=== PATIENT | male | born 1960 | race Hispanic/Latino ===

== ENCOUNTER 2017-07-31 11:49 | Outpatient (CLI) | payer OTHER ==
--- NOTE | 2017-07-31 14:08 | CT ---
CT BRAIN WITHOUT CONRAST: Date: 07/31/17 HISTORY: Injury. Fall. COMPARISON: None. FINDINGS: No acute territorial infarct or hemorrhage. No midline shift or mass effect. Mild microvascular ische nora changes. The calvarium is intact. Paranasal sinuses and mastoids are clear. IMPRESSION: No acute intracranial abnormality. POS: [facility]
== END 2017-07-31 11:50 | disposition home or self-care (01) ==
LOC: CT 11:49
PROVIDERS: ATTEND Family Medicine
DX: S00.93XA Contusion of unspecified part of head, initial encounter (principal); G44.319 Acute post-traumatic headache, not intractable; S46.911A Strain of unspecified muscle, fascia and tendon at shoulder and upper arm level, right arm, initial encounter; S63.92XA Sprain of unspecified part of left wrist and hand, initial encounter; S70.11XA Contusion of right thigh, initial encounter; S80.11XA Contusion of right lower leg, initial encounter
CPT/HCPCS: 70450

== ENCOUNTER 2017-10-02 11:44 | Outpatient (CLI) | payer OTHER ==
[2017-10-02 12:08] VITALS: BMI 32.3
[2017-10-02 12:51] LABS: Hemoglobin 16.9 g/dL (14.0-18.0); Mean Corpuscular HGB CONC 34.8 g/dL (32.0-36.0); Mean Corpuscular Hemoglobin 30.1 pg (27.0-31.0); Mean Corpuscular Volume 86.4 fl (80.0-94.0); Mean Platelet Volume 8.3 fL (7.4-10.4); Platelet Count 325 thou/uL (130-400); RBC Distribution Width 12.3 % (11.5-14.5); Red Blood Cell (RBC) Count 5.62 mill/uL (4.70-6.10)
[2017-10-02 13:09] LABS: Anion Gap 10 mmol/L (10-20); BUN (Urea Nitrogen) 12 mg/dL (8.4-25.7); Calc. Creatinine Clearance 118 mL/min (70-130); Calcium 9.7 mg/dL (7.8-10.44); Carbon Dioxide 27 mmol/L (22-29); Chloride 105 mmol/L (98-107); Estimated GFR-MDRD 75; Glucose 101 mg/dL (70-105); Potassium 4.3 mmol/L (3.5-5.1); Sodium 138 mmol/L (136-145)
== END 2017-10-02 11:45 | disposition home or self-care (01) ==
LOC: LABBT 11:44
PROVIDERS: ATTEND Orthopaedic Surgery
DX: Z01.818 Encounter for other preprocedural examination (principal); M75.101 Unspecified rotator cuff tear or rupture of right shoulder, not specified as traumatic; S43.431A Superior glenoid labrum lesion of right shoulder, initial encounter
CPT/HCPCS: 80048; 85027

== ENCOUNTER 2017-10-06 07:29 | Day surgery (SDC) | payer OTHER ==
[2017-10-06] MEDS ORDERED: Fentanyl 100 MCG/2 ML VIAL ONE ×3 (07:51→12:38)
[2017-10-06] MEDS ORDERED: Midazolam HCl 2 mg/2 ml Vial ONE (07:51)
[2017-10-06] MEDS ORDERED: Bupivacaine/Epinephrine 0.25% 30 ML VIAL ONE (07:52)
[2017-10-06] MEDS ORDERED: Ondansetron HCl/PF 4 MG/2 ML Vial IVP PRN (08:37)
[2017-10-06] MEDS ORDERED: Ropivacaine HCl/PF 1,100 MG in Sodium Chloride 0.9% 440 ML NERVE BLCK SCH (08:37)
[2017-10-06] MEDS ORDERED: Zolpidem Tartrate 5 MG TAB PO PRN (08:37)
[2017-10-06] MEDS ORDERED: Promethazine HCl 25 MG/ML VIAL IM PRN (08:37)
[2017-10-06] MEDS ORDERED: HYDROcodone/Acetaminophen 10/325 mg Tablet PO PRN ×2 (08:37)
[2017-10-06] MEDS ORDERED: traMADol HCl 50 MG TAB PO PRN ×2 (08:37)
[2017-10-06] MEDS ORDERED: Fentanyl 100 MCG/2 ML VIAL IV PRN (08:38)
[2017-10-06] MEDS ORDERED: CEFAZOLIN/Water 2 GM/20 ML SYRINGE ONE (08:39)
[2017-10-06] MEDS ORDERED: Ondansetron HCl/PF 4 MG/2 ML Vial ONE ×2 (09:18→14:22)
[2017-10-06] MEDS ORDERED: Bupivacaine 0.5% 10 ML VIAL ONE (12:40)
[2017-10-06] MEDS ORDERED: Ropivacaine 0.2% HCl/PF (40 MG/20 ML VIAL) ONE (13:48)
[2017-10-06] MEDS ORDERED: Ropivacaine 0.5% HCl/PF (150 MG/30 ML VIAL) ONE (13:48)
[2017-10-06] MEDS ORDERED: Dexamethasone 20 MG/5 ML VIAL ONE (14:22)
[2017-10-06] MEDS ORDERED: Lidocaine 1% PF 5 ML VIAL ONE (14:22)
[2017-10-06] MEDS ORDERED: Glycopyrrolate 0.2 MG/ML 5 ML SYRINGE ONE (14:22)
[2017-10-06] MEDS ORDERED: PROPOFOL 200 MG/20 ML VIAL ONE (14:22)
--- NOTE | 2017-10-06 14:39 | OP ---
DATE OF OPERATION: 10/06/2017 PREOPERATIVE DIAGNOSES: Right shoulder rotator cuff tear, biceps tendinitis and superior labral tear . POSTOPERATIVE DIAGNOSES: Right shoulder rotator cuff tear, biceps tendinitis and superior labral tea r. PROCEDURES PERFORMED: 1. Arthroscopy of the right shoulder with repair of the superior labrum. 2. Open right biceps tenodesis. 3. Open right rotator cuff repair with arthroscopic subacromial decompression. SURGEON: Jacob Norwood M.D. ANESTHESIA: General. TECHNIQUE: The patient had a supraclavicular block performed prior to surgery. He was given preoper ative IV antibiotics, taken to the operating room and placed in supine position. Satisfactory genera l anesthesia was performed. The patient was then placed in the left lateral decubitus position. All bony prominences were well padded. The right upper extremity was placed in 15 pounds of traction an d the right shoulder and upper extremity was sterilely prepped and draped in usual fashion. The [facility] lder was scoped with the usual posterior and anterior portals with a lateral portal. The patient was noted to have no significant arthritic changes in the shoulder joint. There was a tear in the super ior aspect of the labrum at the anchor attachment of the biceps tendon to the glenoid making a 2.5 cm incision over the bicipital groove. The biceps tendon was located, sutures were placed and the светлана ps tendon was detached using a shaver and surface arthrowand and then using the Arthrex 8 mm biceps t enodesis anchor, hole was made and the biceps tendon was tenodesed in the humeral head. This wound w as closed and then the superior aspect of the labrum was repaired using a 2.9 anchor and using #2 Fib erWire. This provided a good stability to the labral tear. The anterior and posterior aspects of th e labrum were intact. The subacromial space was then entered and there was significant amount of bur sitis. The bursal tissue was removed with the shaver and a subacromial decompression was performed u sing the arthrowand and the high speed bur. The patient had a significant bursitis. A larger incisi on was made in the lateral aspect of the shoulder and the bursal tissue was removed and the rotator c uff was repaired using two row anchor system by Arthrex using the 4.75 anchors and the FiberTape this provided excellent repair of the rotator cuff, the wounds were irrigated during the procedure. The fascia over the deltoid muscle was closed using 0 Vicryl in interrupted simple sutures and the skin w as closed with skin edwige. Sterile dressing was applied. The patient was placed in a shoulder imm obilizer. He was awakened, extubated, and transferred to recovery room in stable condition. ESTIMATED BLOOD LOSS: Minimal. COMPLICATIONS: None. DISCHARGE MEDICATIONS: [place] 10 one every 6 hours as needed for pain, # 60.
== END 2017-10-06 16:15 | disposition home or self-care (01) ==
LOC: SDC 07:29
PROVIDERS: ATTEND Orthopaedic Surgery
PROC: 0LQ10ZZ Repair Right Shoulder Tendon, Open Approach (ICD-10-PCS; principal; 2017-10-06)
PROC: 0LS14ZZ Reposition Right Shoulder Tendon, Percutaneous Endoscopic Approach (ICD-10-PCS; principal; 2017-10-06)
PROC: 0MM14ZZ Reattachment of Right Shoulder Bursa and Ligament, Percutaneous Endoscopic Approach (ICD-10-PCS; principal; 2017-10-06)
PROC: 0LU Tendons, Supplement (ICD-10-PCS; principal; 2017-10-06)
DX: S46.011A Strain of muscle(s) and tendon(s) of the rotator cuff of right shoulder, initial encounter (principal); S43.431A Superior glenoid labrum lesion of right shoulder, initial encounter; M75.21 Bicipital tendinitis, right shoulder; M75.51 Bursitis of right shoulder; K21.9 Gastro-esophageal reflux disease without esophagitis; Z79.899 Other long term (current) drug therapy; Z91.041 Radiographic dye allergy status; Z88.6 Allergy status to analgesic agent; W17.89XA Other fall from one level to another, initial encounter
CPT/HCPCS: 96374; C1713; J1100; J2001; J2250; J2405; J2704; J2795; J3010; J3490

== ENCOUNTER 2018-04-13 06:22 | Day surgery (SDC) | payer OTHER ==
[2018-04-12 12:10] VITALS: BMI 30.1
[2018-04-13] MEDS ORDERED: Fentanyl 100 MCG/2 ML VIAL ONE (09:34)
[2018-04-13] MEDS ORDERED: Midazolam HCl 2 mg/2 ml Vial ONE (09:34)
[2018-04-13] MEDS ORDERED: Acetaminophen 500 MG TAB ONE (12:47)
--- NOTE | 2018-04-13 14:16 | OP ---
DATE OF OPERATION: 04/13/2018 PREOPERATIVE DIAGNOSIS: Adhesive capsulitis of the right shoulder. POSTOPERATIVE DIAGNOSIS: Adhesive capsulitis of the right shoulder. PROCEDURE: Manipulation under anesthesia of the right shoulder. SURGEON: Jacob Norwood M.D. ANESTHESIA: Supraclavicular block and general anesthesia. TECHNIQUE: The patient had a supraclavicular block performed prior to surgery. He was taken to the operating room, placed in supine position. Satisfactory general anesthesia was performed. The right shoulder was possibly elevated and he only had 90 degrees of abduction and flexion. I was able to m anipulate the right upper extremity and bring the shoulder up to 180 degrees. During this process, t he scar tissue was palpably and audibly felt and heard. The shoulder was moved in external and inter nal rotation to break up some additional scar tissue. The patient was then awakened and transferred to day stay in good condition. There were no complications. No blood loss. The patient may use an arm sling and use ice for the next several days. He will follow up in my office in 1 week, at which time we will send him to physical therapy. DISCHARGE MEDICATIONS: [place] 10 one every 6 hours as needed for pain, #50.
[2018-04-13] MEDS ORDERED: Bupivacaine HCl 0.5%/Epinephrine 1:200,000/PF 30 ml Vial ONE (14:17)
== END 2018-04-13 13:30 | disposition home or self-care (01) ==
LOC: SDC 06:22
PROVIDERS: ATTEND Orthopaedic Surgery
PROC: 0RQ Upper Joints, Repair (ICD-10-PCS; principal; 2018-04-13)
DX: M75.01 Adhesive capsulitis of right shoulder (principal); Z91.041 Radiographic dye allergy status; Z88.8 Allergy status to other drugs, medicaments and biological substances
CPT/HCPCS: J0670; J2250; J3010

== ENCOUNTER 2025-02-20 15:53 | Outpatient (CLI) | payer MEDICARE | END 2025-02-20 15:54 | disposition home or self-care (01) | LOC: BICRAD 15:53 | PROVIDERS: ATTEND Nurse Practitioner Family | DX: R07.89 Other chest pain (principal) | CPT/HCPCS: 71046 ==